=== PATIENT | male | born 1960 | race Caucasian/White ===

== ENCOUNTER 2020-08-05 11:53 | Outpatient (REF) | payer OTHER, SELFPAY ==
--- NOTE | 2020-08-05 11:58 | XR_ITS ---
EXAMINATION: XR CERVICAL SPINE CLINICAL INFORMATION: Cervical radiculopathy COMPARISON: None TECHNIQUE: 3 views of the cervical spine were obtained. FINDINGS: Straightening of the normal cervical lordosis. Slight anterolisthesis of C3 on C4, appearing degenerative. The atlantoaxial joint is well contained. The dens is intact. Disc space narrowing of C4-C5 and C5-C6 with prominent endplate osteophytes. Prominent endplate osteophytes also noted at C6-C7. The lung apices are clear. The prevertebral soft tissues are unremarkable. Vertebral body height and alignment is otherwise maintained. XR/XR cervical spine 3V IMPRESSION: Moderate degenerative changes throughout the cervical spine.
== END 2020-08-05 11:54 | disposition home or self-care (01) ==
LOC: HO.HMGCX 11:53
PROVIDERS: PCP Nurse Practitioner Family; Visit Provider Internal Medicine
DX: M54.12 Radiculopathy, cervical region (principal)
CPT/HCPCS: 72040

== ENCOUNTER 2020-09-15 15:47 | Outpatient (REF) | payer OTHER, SELFPAY ==
--- NOTE | 2020-09-15 15:50 | MR_ITS ---
MR CERVICAL SPINE WITHOUT CONTRAST CLINICAL INFORMATION: Cervical region radiculopathy. COMPARISON: Cervical spine radiographs 08/05/2020. TECHNIQUE: MRI of the cervical spine was obtained using routine sequences without contrast. FINDINGS: There is reversal of the cervical lordosis. The vertebral body heights are maintained. There are multilevel endplate osteophytes. The disc volumes are preserved. There is bone marrow edema within the right C4 and C5 facets that is most likely degenerative or inflammatory. There is no additional bone marrow edema. There are no acute fractures. Cervical arterial flow voids are maintained. There are no significant soft tissue findings. The partially imaged intracranial compartment is unremarkable. C2-C3: Disc osteophyte and ligamentum flavum thickening mildly narrow the central canal. Uncovertebral joint hypertrophy and advanced facet arthropathy result in severe left-sided foraminal stenosis. C3-C4: Disc osteophyte and ligamentum flavum thickening mildly narrow the central canal. Uncovertebral joint hypertrophy and hypertrophic facet arthropathy result in severe left and moderate to severe right foraminal stenosis. C4-C5: Disc osteophyte and ligamentum flavum thickening result in moderate to severe central canal stenosis and flattening of the cervical cord. Uncovertebral joint hypertrophy and hypertrophic facet arthropathy result in severe right and moderate to severe left foraminal stenosis. C5-C6: Central disc protrusion results in severe central canal stenosis and mass effect on the cord. Uncovertebral joint hypertrophy and hypertrophic facet arthropathy result in severe bilateral foraminal stenosis. No cord signal changes. C6-C7: Annular disc bulge and ligamentum flavum thickening result in moderate central canal stenosis. There is a soft right foraminal disc protrusion that results in severe right-sided foraminal stenosis and compression of the exiting right C7 nerve root. Uncovertebral joint spurring and facet arthropathy result in mild to moderate left foraminal stenosis. C7-T1: Disc contour is normal. No central canal stenosis and no foraminal stenosis. MR/MR cervical spine wo con IMPRESSION: - Advanced cervical spondylosis. Multifactorial degenerative changes result in severe central canal stenosis at C5-C6, moderate to severe central canal stenosis at C4-C5, and moderate central canal stenosis at C6-C7 with mass effect on the cervical spinal cord at all these levels, greatest at C5-C6. No definite cord signal changes accounting for artifact. - At C6-C7, there is a soft right foraminal disc protrusion that results in severe right-sided foraminal stenosis and compression of the exiting right C7 nerve root. - Advanced spondylitic changes result in additional varying degrees of moderate to severe foraminal stenosis bilaterally throughout the cervical spine as discussed in detail above.
== END 2020-09-15 15:48 | disposition home or self-care (01) ==
LOC: HO.MRI 15:47
PROVIDERS: Visit Provider Nurse Practitioner Family
DX: M54.12 Radiculopathy, cervical region (principal)
CPT/HCPCS: 72141

== ENCOUNTER 2020-10-22 08:54 | Outpatient (REF) | payer OTHER, SELFPAY ==
[2020-10-22 10:46] LABS: MANUAL DIFF FLAG NO
[2020-10-22 10:57] LABS: Basophils Percent Auto 0.8 % (0-2); Eosinophils Absolute Auto 0.3 X10*3/uL (0.0-0.4); Eosinophils Percent Auto 7.6 % (0-4); Hematocrit 45.4 % (42-52); Hemoglobin 14.2 g/dl (14.0-18.0); Lymphocytes Absolute Auto 1.1 X10*3/uL (1.2-4.9); Lymphocytes Percent Auto 30.8 % (20-40); Mean Corpuscular HGB Conc 31.3 g/dl (31.0-36.0); Mean Corpuscular Hemoglobin 27.6 pg (27.0-33.0); Mean Corpuscular Volume 88.3 fL (80-98); Mean Platelet Volume 9.4 fL (9.4-12.4); Monocytes Absolute Auto 0.6 X10*3/uL (0.1-1.2); Monocytes Percent Auto 17.5 % (2-11); Neutrophils Absolute Auto 1.5 X10*3/uL (2.0-8.3); Neutrophils Percent Auto 43.3 % (45-73); Platelet Count 282 X10*3/uL (160-400); Red Blood Count 5.14 X10*6/uL (4.60-5.80); Red Cell Distribution Width 12.5 % (11.0-16.0); White Blood Count 3.5 X10*3/uL (4.8-10.8)
[2020-10-22 11:16] LABS: Alanine Aminotransferase 16 U/L (0-40); Albumin Level 4.3 g/dL (3.5-5.0); Alkaline Phosphatase 60 U/L (39-117); Anion Gap 11 (12-20); Aspartate Amino Transferase 20 U/L (5-37); Bilirubin Total 0.9 mg/dL (0.0-1.0); Blood Urea Nitrogen 11 mg/dL (9-16); Calcium 8.8 mg/dL (8.4-10.2); Carbon Dioxide 31 mmol/L (22-29); Chloride 103 mmol/L (96-108); Estimated Glomerular Filt Rate > 60; Glucose Random 88 mg/dL (60-115); Potassium 4.7 mmol/L (3.3-5.1); Sodium 140 mmol/L (135-145); Total Protein 6.7 g/dL (6.5-8.0)
[2020-10-22 11:52] LABS: Prothrombin Time 12.1 SEC (10.8-13.0)
[2020-10-22 11:58] LABS: Partial Thromboplastin Time 70.2 SEC (24.1-38.0)
== END 2020-10-22 08:55 | disposition home or self-care (01) ==
LOC: HO.WFDLDS 08:54
PROVIDERS: Visit Provider Nurse Practitioner Family
DX: Z01.818 Encounter for other preprocedural examination (principal)
CPT/HCPCS: 36415; 80053; 85025; 85610; 85730

== ENCOUNTER 2020-10-23 09:26 | Outpatient (REF) | payer OTHER, SELFPAY ==
[2020-10-23 11:51] LABS: Partial Thromboplastin Time 67.1 SEC (24.1-38.0)
[2020-10-23 12:04] LABS: Alanine Aminotransferase 14 U/L (0-40); Alkaline Phosphatase 62 U/L (39-117); Aspartate Amino Transferase 15 U/L (5-37); Bilirubin Direct 0.2 mg/dL (0.0-0.5); Bilirubin Total 0.3 mg/dL (0.0-1.0); Total Protein 6.4 g/dL (6.5-8.0)
== END 2020-10-23 09:27 | disposition home or self-care (01) ==
LOC: HO.WFDLDS 09:26
PROVIDERS: Visit Provider Nurse Practitioner Family
DX: Z01.818 Encounter for other preprocedural examination (principal)
CPT/HCPCS: 36415; 80076; 85730

== ENCOUNTER 2020-12-04 07:37 | Outpatient (REF) | payer OTHER, SELFPAY ==
[2020-12-04 11:40] LABS: Glucose Urine UA NEG (NEG); Leukocyte Esterase Urine NEG (NEG); Nitrite Urine NEG (NEG); PH 6.5 (5.0-8.0); Specific Gravity - Urine 1.025 (1.005-1.025); Urine Blood NEG (NEG); Urine Ketones NEG (NEG); Urine Protein NEG (NEG-TRACE)
[2020-12-04 11:41] LABS: Appearance Urine HAZY; Color Urine YELLOW
[2020-12-04 11:54] LABS: Alanine Aminotransferase 10 U/L (0-40); Albumin Level 4.1 g/dL (3.5-5.0); Alkaline Phosphatase 68 U/L (39-117); Anion Gap 9 (12-20); Aspartate Amino Transferase 14 U/L (5-37); Bilirubin Total 0.6 mg/dL (0.0-1.0); Blood Urea Nitrogen 18 mg/dL (9-16); Calcium 8.9 mg/dL (8.4-10.2); Carbon Dioxide 33 mmol/L (22-29); Chloride 104 mmol/L (96-108); Cholesterol 145 mg/dL; Estimated Glomerular Filt Rate > 60; Glucose Fasting 87 mg/dL (60-99); HDL Cholesterol 45 mg/dL; LDL Cholesterol Calculated 85 mg/dl; Potassium 4.4 mmol/L (3.3-5.1); Sodium 142 mmol/L (135-145); Total Protein 6.5 g/dL (6.5-8.0); Triglycerides 77 mg/dL
[2020-12-04 11:59] LABS: Prostate Specific Antigen Scr 0.82 ng/mL (<0.05-4.0); TSH reflex Free T4 0.46 uIU/mL (0.32-4.0)
== END 2020-12-04 07:38 | disposition home or self-care (01) ==
LOC: HO.HMGCLDS 07:37
PROVIDERS: PCP Nurse Practitioner Family; Visit Provider Nurse Practitioner Family
DX: Z00.00 Encounter for general adult medical examination without abnormal findings (principal)
CPT/HCPCS: 36415; 80053; 80061; 81003; 84153; 84443

== ENCOUNTER 2021-08-25 14:35 | Outpatient (REF) | payer OTHER, SELFPAY | END 2021-08-25 14:36 | disposition home or self-care (01) | LOC: HO.HMGCLDS 14:35 | PROVIDERS: Visit Provider Internal Medicine | DX: Z20.822 Contact with and (suspected) exposure to COVID-19 (principal) | CPT/HCPCS: C9803; U0003; U0005 ==

== ENCOUNTER 2022-10-07 06:02 | Outpatient (REF) | payer OTHER, SELFPAY ==
[2022-10-07 11:17] LABS: MANUAL DIFF FLAG NO
[2022-10-07 11:26] LABS: Basophils Percent Auto 0.6 % (0-2); Eosinophils Absolute Auto 0.3 X10*3/uL (0.0-0.4); Eosinophils Percent Auto 6.6 % (0-4); Hematocrit 45.4 % (42.0-52.0); Hemoglobin 14.1 g/dl (14.0-18.0); Imm Gran Abs Auto 0.02 X10*3/uL (0.00-0.03); Imm Gran Pct Auto 0.4 % (0.0-0.4); Lymphocytes Absolute Auto 1.3 X10*3/uL (1.2-4.9); Lymphocytes Percent Auto 25.4 % (20-40); Mean Corpuscular HGB Conc 31.1 g/dl (31.0-36.0); Mean Corpuscular Volume 90.1 fL (80.0-98.0); Mean Platelet Volume 9.5 fL (9.4-12.4); Monocytes Absolute Auto 0.5 X10*3/uL (0.1-1.2); Monocytes Percent Auto 9.7 % (2-11); Neutrophils Absolute Auto 2.9 x10*3/uL (2.0-8.3); Neutrophils Percent Auto 57.3 % (45-73); Platelet Count 255 X10*3/uL (160-400); Red Blood Count 5.04 X10*6/uL (4.60-5.80); Red Cell Distribution Width 12.9 % (11.0-16.0)
[2022-10-07 11:50] LABS: Alanine Aminotransferase 14 U/L (0-40); Albumin Level 4.2 g/dL (3.5-5.0); Alkaline Phosphatase 64 U/L (39-117); Anion Gap 10 (12-20); Aspartate Amino Transferase 19 U/L (5-37); Bilirubin Total 0.9 mg/dL (0.0-1.0); Blood Urea Nitrogen 16 mg/dL (9-16); Calcium 9.4 mg/dL (8.4-10.2); Carbon Dioxide 32 mmol/L (22-29); Chloride 103 mmol/L (96-108); Cholesterol 161 mg/dL; Estimated Glomerular Filt Rate > 60; Glucose Fasting 102 mg/dL (60-99); HDL Cholesterol 47 mg/dL; LDL Cholesterol Calculated 89 mg/dl; Potassium 4.5 mmol/L (3.3-5.1); Sodium 140 mmol/L (135-145); Total Protein 6.7 g/dL (6.5-8.0); Triglycerides 125 mg/dL
[2022-10-07 12:07] LABS: TSH reflex Free T4 1.19 uIU/mL (0.32-4.0)
[2022-10-08 07:49] LABS: Follicle Stimulating Hormone 12.2 mIU/mL (1.6-8.0); Lutenizing Hormone 1.6 mIU/mL (1.6-15.2); Sex Hormone Binding Globulin 49 nmol/L (22-77)
[2022-10-14 13:34] LABS: Testosterone, Free 23.6 pg/mL (35.0-155.0); Testosterone, Total 243 ng/dL (250-1100)
== END 2022-10-07 06:03 | disposition home or self-care (01) ==
LOC: HO.HMGCLDS 06:02
PROVIDERS: PCP Nurse Practitioner Family; Visit Provider Nurse Practitioner Family
DX: F41.9 Anxiety disorder, unspecified (principal); N52.9 Male erectile dysfunction, unspecified; Z12.5 Encounter for screening for malignant neoplasm of prostate
CPT/HCPCS: 36415; 80053; 80061; 83001; 83002; 84153; 84270; 84402; 84403; 84443; 85025

== ENCOUNTER 2022-12-23 06:14 | Outpatient (REF) | payer OTHER, SELFPAY ==
[2022-12-30 13:54] LABS: Testosterone, Total 432 ng/dL (250-1100)
== END 2022-12-23 06:15 | disposition home or self-care (01) ==
LOC: HO.HMGCLDS 06:14
PROVIDERS: PCP Nurse Practitioner Family; Visit Provider Physician Assistant Surgical
DX: E29.1 Testicular hypofunction (principal)
CPT/HCPCS: 36415; 84402; 84403

== ENCOUNTER 2023-11-23 10:04 | Outpatient (AMB) | payer OTHER, SELFPAY ==
--- NOTE | 2023-11-23 10:12 | A.OFFPC_ITS ---
Vital Signs 11/23/23 10:16 Height 5 ft 11 in Weight 205 lb BMI 28.6 BP 126/78 Blood Pressure Location Lt brachial Position Sitting Pulse 81 Pulse Source Pulse Oximeter Pulse Oximetry (%) 97 Oxygen Delivery Method Room Air Intake Visit Reasons: Lump on neck Intake Note: pt is here for concern of lump on neck Bumper Straightener Required: No Allergies prednisone Allergy (Mild, Verified 11/23/23 10:51) tachycardia Penicillins Allergy (Unknown, Verified 11/23/23 10:51) vomiting penicillin V Adverse Reaction (Unknown, Verified 11/23/23 10:51) Vomiting Medication List - Last Reconciled 11/23/23 by SANJIV Pollock losartan 75 mg (3 x 25 mg) PO DAILY 90 days tamsulosin 0.4 mg PO DAILY Tobacco use date assessed: 11/23/23 Fall risk assessment: No Falls in past year Last assessed Fall Risk: 11/23/23 Dental Screening Dental Screen Date: 11/23/23 Did you have a dental visit in the last 12 months?: Yes Did you have a dental problem in the last 6 months where you did not have access to dental care?: No Was dental information given to patient?: Patient has dentist HPI Lump on neck HPI Details pt reports approx 3 months ago he noticed a lump to the right aspect of his anterior neck. He reports some tenderness with palpation. Denies any ear pains, dsyphagia, CP, SOB, fevers, chills, though does report a sore throat (intermittent). #2 pt reports the he was diagnosed with MG approx 40 years ago. He reports his first symptoms was weakness of BLE. He reports recently developing increase in BLE weakness. He reports his eyes become fatigued , i have to pry my eyelid open sometimes . He further reports his eyes cross when very tired. He does report working up to 50+ hrs a week. [facility] Medical History Adrenal adenoma HTN (hypertension) Anemia ETOH abuse Fatty liver Myasthenia gravis Romero's palsy Radiculitis of right cervical region Surgical History Status post cervical discectomy History of microdiscectomy History of thymectomy Family History Father Myocardial infarction Substance use disorder Mother Arthritis Social History Housing: House Alcohol intake: never Patient Tobacco Use Status: Never used Tobacco e-Cigarette/Vaping Use: Never Used service: No Current occupational status: employed Current occupation: [employer] Current occupational exposures/hazards: No Cognitive needs: No Hearing needs: No Vision needs: No Questionnaire PHQ-9 Over the last 2 weeks, how often have you been bothered by any of the following problems? 30169 - PHQ-9 Billing: Patient declined-do not bill Source: Developed by Drs. Kiet Sanchez, Mitzy Soliz, Mickey Jauregui and colleagues, with an educational jojo from [employer]. Thrive Questionnaire Date Thrive assessed: 11/23/23 I am a: Patient What is your living situation today?: I have a steady place to live Within the past 12 months, did the food you bought not last and you didn't have the money to get more?: Never true Within the past 12 months, did you worry whether your food would run out before you got money to buy more?: Never true Do you have trouble paying for medicines?: No Do you have trouble getting transportation to medical appointments?: No Do you have trouble paying your heating and electricity bill?: No Do you have trouble taking care of your child, family member or friend?: No Do you have trouble with day-to-day activities such as bathing, preparing meals, shopping, managing finances, etc.?: No Are you currently unemployed and looking for a job?: No Are you interested in more education?: No Please select the resources that you would like help with: None Currently or been in a relationship where the following occur: no concerns reported THRIVE Score: 0 AUDIT C Alcohol Use Questionnaire (AUDIT-C) 1. How often do you have a drink containing alcohol?: Never Total Score: 0 Score Reviewed/Action Taken: Yes MELBA-7 AMB Questionnaire MELBA-7 Date MELBA - 7 assessed: 11/23/23 Source: Developed by Mitzy Aguiar, Mickey Jauregui and colleagues, with an educational jojo from [employer]. MELBA-7 Assessment Billing MELBA-7 Assessment Tool: pt declined-do not bill Physical exam (Primary Care) Vital Signs: Last Vital Signs Pulse 81 11/23/23 10:16 BP 126/78 11/23/23 10:16 Pulse Ox 97 11/23/23 10:16 Oxygen Delivery Method Room Air 11/23/23 10:16 BMI result Body Mass Index 28.6 Tobacco/Smoking Status: Tobacco use Status Tobacco use date assessed 11/23/23 11/23/23 10:18 Patient Tobacco Use Status Never used Tobacco 11/23/23 10:12 e-Cigarette/Vaping Use Never Used 11/23/23 10:12 Thrive Assessment: Date of Thrive Assessment Date Thrive assessed 11/23/23 11/23/23 10:31 Currently or been in a relationship where the following occur: no concerns reported Const General: cooperative and no acute distress Orientation/consciousness: patient oriented x3 HENMT Head: Yes normal to inspection Ears: TM normal on the right and TM normal on the left Mouth: Normal oral and palatal mucosa present Throat: Yes posterior oropharynx normal Neck Other: ? right cervical node enlargement. semi-tender movable Lump, not indurated and difficult to palpate, soft Neck: Yes normal visual inspection Resp Effort & Inspection: normal respiratory effort Auscultation: clear to auscultation bilaterally Cardio Rate: regular rate Rhythm: regular rhythm Heart sounds: S1 normal heart sound present and S2 normal heart sound present Neuro Other: left eyelid droop (baseline). fingers to thumb intact, arm pull test neg, no nystagmus noted with cardinal gazes, neg rhomberg. General: patient oriented x3 Cranial nerves: Yes CN's II-XII intact bilaterally Psych Appearance: grossly normal Mental Status: mental status grossly normal Speech and movement: Normal speech and movement present Thought process: Normal thought process present Assessment and Plan Assessment & Plan (1) Lump in neck: Code(s): R22.1 - Localized swelling, mass and lump, neck Plan: US (2) Myasthenia gravis: Code(s): G70.00 - Myasthenia gravis without (acute) exacerbation Plan: referring to neuro Orders: Orders US soft tiss head and/or neck Today R22.1 - Localized swelling, mass and lump, neck Referrals Neurology Referral G70.00 - Myasthenia gravis without (acute) exacerbation Coding Level of Care Code Est Pt Level 3 (33200) Diagnoses Lump in neck R22.1 Myasthenia gravis G70.00
[2023-11-23 10:16] VITALS: BP 126/78; PULSE 81; O2SAT 97; BMI 28.6
== END 2023-11-23 14:48 | disposition home or self-care (01) ==
PROVIDERS: PCP Nurse Practitioner Family; Visit Provider Nurse Practitioner Family
DX: R22.1 Localized swelling, mass and lump, neck (principal); G70.00 Myasthenia gravis without (acute) exacerbation
CPT/HCPCS: 99213

== ENCOUNTER 2024-01-12 06:16 | Outpatient (REF) | payer OTHER, SELFPAY ==
[2024-01-12 10:23] LABS: MANUAL DIFF FLAG NO
[2024-01-12 10:51] LABS: Basophils Percent Auto 0.7 % (0-2); Eosinophils Absolute Auto 0.4 X10*3/uL (0.0-0.4); Eosinophils Percent Auto 7.5 % (0-4); Hematocrit 42.6 % (42.0-52.0); Hemoglobin 13.9 g/dl (14.0-18.0); Imm Gran Abs Auto 0.01 X10*3/uL (0.00-0.03); Imm Gran Pct Auto 0.2 % (0.0-0.4); Lymphocytes Absolute Auto 1.2 X10*3/uL (1.2-4.9); Lymphocytes Percent Auto 21.5 % (20-40); Mean Corpuscular HGB Conc 32.6 g/dl (31.0-36.0); Mean Corpuscular Hemoglobin 29.3 pg (27.0-33.0); Mean Corpuscular Volume 89.9 fL (80.0-98.0); Mean Platelet Volume 9.7 fL (9.4-12.4); Monocytes Absolute Auto 0.4 X10*3/uL (0.1-1.2); Monocytes Percent Auto 7.8 % (2-11); Neutrophils Absolute Auto 3.3 x10*3/uL (2.0-8.3); Neutrophils Percent Auto 62.3 % (45-73); Platelet Count 229 X10*3/uL (160-400); Red Blood Count 4.74 X10*6/uL (4.60-5.80); White Blood Count 5.4 X10*3/uL (4.8-10.8)
[2024-01-12 11:02] LABS: Alanine Aminotransferase 17 U/L (0-40); Alkaline Phosphatase 69 U/L (39-117); Anion Gap 9 (12-20); Aspartate Amino Transferase 35 U/L (5-37); Bilirubin Total 0.4 mg/dL (0.0-1.0); Blood Urea Nitrogen 18 mg/dL (9-16); Calcium 9.5 mg/dL (8.4-10.2); Carbon Dioxide 30 mmol/L (22-29); Chloride 104 mmol/L (96-108); Cholesterol 145 mg/dL (<200); Estimated Glomerular Filt Rate > 60; Glucose Fasting 88 mg/dL (60-99); HDL Cholesterol 49 mg/dL (>40); LDL Cholesterol Calculated 61 mg/dL (<100); Potassium 4.3 mmol/L (3.3-5.1); Sodium 139 mmol/L (135-145); Total Protein 6.8 g/dL (6.5-8.0); Triglycerides 175 mg/dL (<150)
[2024-01-12 11:08] LABS: TSH reflex Free T4 1.01 uIU/mL (0.32-4.0)
== END 2024-01-12 06:17 | disposition home or self-care (01) ==
LOC: HO.HMGCLDS 06:16
PROVIDERS: PCP Nurse Practitioner Family; Visit Provider Nurse Practitioner Family
DX: Z00.00 Encounter for general adult medical examination without abnormal findings (principal); Z13.6 Encounter for screening for cardiovascular disorders
CPT/HCPCS: 36415; 80053; 80061; 84443; 85025

== ENCOUNTER 2024-01-20 10:23 | Outpatient (REF) | payer OTHER, SELFPAY ==
[2024-01-20 14:12] LABS: Appearance Urine Clear; Color Urine Yellow; Glucose Urine UA Negative (Negative); Leukocyte Esterase Urine Negative (Negative); Nitrite Urine Negative (Negative); PH 7.5 (5.0-9.0); Specific Gravity - Urine 1.015 (1.005-1.025); Urine Blood Negative (Negative); Urine Ketones Negative (Negative); Urine Protein Negative (Neg-Trace)
== END 2024-01-20 10:24 | disposition home or self-care (01) ==
LOC: HO.HMGCLDS 10:23
PROVIDERS: PCP Nurse Practitioner Family; Visit Provider Nurse Practitioner Family
DX: R30.0 Dysuria (principal)
CPT/HCPCS: 81003; 87086

== ENCOUNTER 2024-02-14 11:29 | Outpatient (AMB) | payer OTHER, SELFPAY ==
[2024-02-14 11:48] VITALS: BP 130/76; PULSE 80; O2SAT 97; BMI 28.2
--- NOTE | 2024-02-14 11:48 | A.OFFPC_ITS ---
Vital Signs 02/14/24 11:48 Height 5 ft 11 in Weight 202 lb BMI 28.2 BP 130/76 Blood Pressure Location Rt brachial Position Sitting Pulse 80 Pulse Source Pulse Oximeter Pulse Oximetry (%) 97 Intake Visit Reasons: PE Intake Note: pt is here for physical exam Progressive Die Maker Required: No Allergies prednisone Allergy (Mild, Verified 02/14/24 12:15) tachycardia Penicillins Allergy (Unknown, Verified 02/14/24 12:15) vomiting penicillin V Adverse Reaction (Unknown, Verified 02/14/24 12:15) Vomiting Medication List - Last Reconciled 02/14/24 by SANJIV Pollock losartan 75 mg (3 x 25 mg) PO DAILY 90 days tamsulosin 0.4 mg PO DAILY Tobacco use date assessed: 11/23/23 Fall risk assessment: No Falls in past year Last assessed Fall Risk: 02/14/24 Dental Screening Dental Screen Date: 11/23/23 HPI PE HPI Details Pt is here for a PE. Will order labs. Colon screen is up to date. Due for PSA, will order. Pt reports weak stream. Pt is seeing urology. He has an upcoming cystoscopy. Pt has a hx of myasthenia gravis. He does not currently see a neurologist, will refer. [facility] Medical History Adrenal adenoma HTN (hypertension) Anemia ETOH abuse Fatty liver Myasthenia gravis Romero's palsy Radiculitis of right cervical region Surgical History Status post cervical discectomy History of microdiscectomy History of thymectomy Family History Father Myocardial infarction Substance use disorder Mother Arthritis Social History Housing: House Alcohol intake: never Patient Tobacco Use Status: Never used Tobacco e-Cigarette/Vaping Use: Never Used service: No Current occupational status: employed Current occupation: [employer] Current occupational exposures/hazards: No Cognitive needs: No Hearing needs: No Vision needs: No Questionnaire Thrive Questionnaire Date Thrive assessed: 11/23/23 MELBA-7 AMB Questionnaire MELBA-7 Date MELBA - 7 assessed: 11/23/23 Source: Developed by Drs. Kiet Sanchez, Mitzy Soliz, Mickey Jauregui and colleagues, with an educational jojo from [employer]. Review of Systems Const Denies chills and Denies fever(s) Eyes Denies blurry vision ENT Denies vertigo, Denies dizziness and Denies sore throat Card Denies chest pain at rest, Denies chest pain with activity, Denies diaphoresis, Denies dyspnea and Denies dyspnea on exertion Resp Denies cough, Denies dyspnea, Denies dyspnea on exertion and Denies wheezing GI Denies abdominal pain, Denies melena, Denies hematochezia, Denies constipation, Denies diarrhea and Denies loose stools Denies hematuria Musc Denies numbness and Denies tingling Skin/Breast Denies lesions Neuro Denies vertigo, Denies dizziness, Denies numbness and Denies tingling Psych Denies anxiety, Denies depression, Denies homicidal ideation, Denies suicidal ideation and Denies other (substance abuse) Aller/Immun Denies wheezing Physical exam (Primary Care) Vital Signs: Last Vital Signs Pulse 80 02/14/24 11:48 BP 130/76 02/14/24 11:48 Pulse Ox 97 02/14/24 11:48 BMI result Body Mass Index 28.2 Tobacco/Smoking Status: Tobacco use Status Tobacco use date assessed 11/23/23 02/14/24 11:50 Patient Tobacco Use Status Never used Tobacco 02/14/24 11:50 e-Cigarette/Vaping Use Never Used 02/14/24 11:50 Thrive Assessment: Date of Thrive Assessment Date Thrive assessed 11/23/23 02/14/24 11:50 Const General: cooperative Nutritional Appearance: well nourished Orientation/consciousness: patient oriented x3 HENMT Head: Yes normal to inspection, Yes normocephalic and Yes atraumatic Ears: TM's normal bilaterally Eyes Other: left eyelid slow to react, slight droop of left mouth General: appearance normal, both eyes and all related structures Alignment and Position: alignment normal and position normal Neck Neck: Yes normal visual inspection and Yes no lymphadenopathy Thyroid: Thyroid normal Resp Effort & Inspection: normal respiratory effort Auscultation: clear to auscultation bilaterally Cardio Rate: regular rate Rhythm: regular rhythm Heart sounds: S1 normal heart sound present, S2 normal heart sound present and no murmurs GI Palpation (GI): Soft to palpation and nontender Auscultation: normal bowel sounds Other: AMPARO: prostate enlarged Male General Exam: Yes normal external exam Penis: normal penis Scrotum: scrotum normal, testes descended bilaterally and no inguinal hernias Testes: no testicular mass Skin Rashes: no rashes Neuro General: patient oriented x3, moves all extremities, no focal motor deficits and deep tendon reflexes 2+ bilaterally Romberg Test: Negative Psych Appearance: grossly normal Mental Status: mental status grossly normal Speech and movement: Normal speech and movement present Affect: normal affect Attitude: cooperative Thought process: Normal thought process present Thought content: Normal thought content present Insight: Good insight present (Psych) Judgement: Good judgement present (Psych) Assessment and Plan Assessment & Plan (1) Physical exam: Code(s): Z. - Encounter for general adult medical examination without abnormal findings Plan: Labs ordered (2) Myasthenia gravis: Code(s): G70.00 - Myasthenia gravis without (acute) exacerbation Plan: Referred to neurology (3) Screening PSA (prostate specific antigen): Code(s): Z12.5 - Encounter for screening for malignant neoplasm of prostate Plan The patient agreed to the use of a director of graduate medical education for this encounter. Scribed for SANJIV Cadena by Negar Velez director of graduate medical education, on 02/14/2024 at 12:05 EST. Orders: Orders Complete Blood Count Auto Diff Today Z00.00 - Encounter for general adult medi mert examination without abnormal findings TSH reflex Free T4 Today Z00.00 - Encounter for general adult medical examination without abnormal findings Lipid Panel Today Z00.00 - Encounter for general adult medical examination without abnormal findings Comprehensive Radcliffe. Panel Fast Today Z00.00 - Encounter for general adult medical examination without abnormal findings UA CC w/rflx Micro + Cult Today Z00.00 - Encounter for general adult medical examination without abnormal findings Prostate Specific Antigen Scr Today Z12.5 - Encounter for screening for malignant neoplasm of prostate Referrals Neurology Referral G70.00 - Myasthenia gravis without (acute) exacerbation Coding Level of Care Code Est Pt Prev Care >65y(50992) Diagnoses Physical exam Z00.00 Myasthenia gravis G70.00 Screening PSA (prostate specific antigen) Z12.5
== END 2024-02-14 12:28 | disposition home or self-care (01) ==
PROVIDERS: Visit Provider Nurse Practitioner Family
DX: Z00.00 Encounter for general adult medical examination without abnormal findings (principal); G70.00 Myasthenia gravis without (acute) exacerbation; Z12.5 Encounter for screening for malignant neoplasm of prostate
CPT/HCPCS: 99397

== ENCOUNTER 2024-08-07 06:07 | Outpatient (REF) | payer OTHER, SELFPAY ==
[2024-08-07 10:07] LABS: MANUAL DIFF FLAG NO
[2024-08-07 10:18] LABS: Basophils Percent Auto 0.4 % (0-2); Eosinophils Absolute Auto 0.3 X10*3/uL (0.0-0.4); Eosinophils Percent Auto 5.2 % (0-4); Hemoglobin 14.6 g/dl (14.0-18.0); Imm Gran Abs Auto 0.01 X10*3/uL (0.00-0.03); Imm Gran Pct Auto 0.2 % (0.0-0.4); Lymphocytes Absolute Auto 1.2 X10*3/uL (1.2-4.9); Lymphocytes Percent Auto 21.9 % (20-40); Mean Corpuscular HGB Conc 32.4 g/dl (31.0-36.0); Mean Corpuscular Volume 89.5 fL (80.0-98.0); Mean Platelet Volume 9.4 fL (9.4-12.4); Monocytes Absolute Auto 0.5 X10*3/uL (0.1-1.2); Monocytes Percent Auto 9.4 % (2-11); Neutrophils Absolute Auto 3.4 x10*3/uL (2.0-8.3); Neutrophils Percent Auto 62.9 % (45-73); Platelet Count 209 X10*3/uL (160-400); Red Blood Count 5.03 X10*6/uL (4.60-5.80); Red Cell Distribution Width 12.8 % (11.0-16.0); White Blood Count 5.3 X10*3/uL (4.8-10.8)
[2024-08-07 10:52] LABS: Alanine Aminotransferase 17 U/L (0-40); Albumin Level 4.3 g/dL (3.5-5.0); Alkaline Phosphatase 58 U/L (39-117); Anion Gap 8 (12-20); Aspartate Amino Transferase 24 U/L (5-37); Blood Urea Nitrogen 15 mg/dL (9-16); Calcium 9.6 mg/dL (8.4-10.2); Carbon Dioxide 32 mmol/L (22-29); Chloride 105 mmol/L (96-108); Cholesterol 144 mg/dL (<200); Estimated Glomerular Filt Rate > 60; Glucose Fasting 81 mg/dL (60-99); HDL Cholesterol 50 mg/dL (>40); LDL Cholesterol Calculated 75 mg/dL (<100); Potassium 4.7 mmol/L (3.3-5.1); Sodium 140 mmol/L (135-145); TSH reflex Free T4 1.46 uIU/mL (0.32-4.0); Triglycerides 98 mg/dL (<150)
[2024-08-07 11:05] LABS: Prostate Specific Antigen Scr 0.92 ng/mL (<0.05-4.0)
== END 2024-08-07 06:08 | disposition home or self-care (01) ==
LOC: HO.HMGCLDS 06:07
PROVIDERS: PCP Nurse Practitioner Family; Visit Provider Nurse Practitioner Family
DX: Z00.00 Encounter for general adult medical examination without abnormal findings (principal); Z12.5 Encounter for screening for malignant neoplasm of prostate
CPT/HCPCS: 36415; 80053; 80061; 84153; 84443; 85025

== ENCOUNTER 2024-08-15 08:02 | Outpatient (AMB) | payer OTHER, SELFPAY ==
--- NOTE | 2024-08-15 08:06 | MHC.PC.OV ---
Vital Signs 08/15/24 08:07 Height 5 ft 11 in Weight 206 lb 8 oz BMI 28.8 BP 128/84 Blood Pressure Location Rt brachial Position Sitting Pulse 83 Pulse Source Pulse Oximeter Pulse Oximetry (%) 98 Oxygen Delivery Method Room Air Intake Visit Reasons: 6 month follow up Allergies prednisone Allergy (Mild, Verified 08/15/24 08:09) tachycardia Penicillins Allergy (Unknown, Verified 08/15/24 08:09) vomiting penicillin V Adverse Reaction (Unknown, Verified 08/15/24 08:09) Vomiting Tobacco use date assessed: 08/15/24 Fall risk assessment: No Falls in past year Dental Screening Dental Screen Date: 08/15/24 Did you have a dental visit in the last 12 months?: Yes Did you have a dental problem in the last 6 months where you did not have access to dental care?: No Was dental information given to patient?: Patient has dentist HPI 6 month follow up HPI Details HTN: stable. denies any CP, SOB, dizziness, N/V. He does report intermittent edema to his BLE, describing more sock/trace edema. Choles/trigs/LDL looking fairly impressive. [facility] Medical History HTN (hypertension) Microscopic hematuria Peyronie disease Adrenal adenoma Anemia ETOH abuse Fatty liver Myasthenia gravis Romero's palsy Radiculitis of right cervical region Surgical History Status post cervical discectomy History of microdiscectomy History of thymectomy Family History Father Myocardial infarction Substance use disorder Mother Arthritis Social History Housing: House Alcohol intake: never Patient Tobacco Use Status: Never used Tobacco e-Cigarette/Vaping Use: Never Used service: No Current occupational status: employed Current occupation: [employer] Current occupational exposures/hazards: No Cognitive needs: No Hearing needs: No Vision needs: No Questionnaire PHQ-9 Over the last 2 weeks, how often have you been bothered by any of the following problems? 1. Little interest or pleasure in doing things: not at all 2. Feeling down, depressed, or hopeless: not at all 3. Trouble falling or staying asleep, or sleeping too much: not at all 4. Feeling tired or having little energy: not at all 5. Poor appetite or overeating: not at all 6. Feeling bad about yourself - or that you are a failure or have let yourself or your family down: not at all 7. Trouble concentrating on things, such as reading the newspaper or watching television: not at all 8. Moving or speaking so slowly that other people could have noticed. Or the opposite - being so fidgety or restless that you have been moving around a lot more than usual: not at all 9. Thoughts that you would be better off or of hurting yourself in some way: not at all Total score: 0 Depression Screening Interpretation: Negative Depression Screening Done: Yes 17260 - PHQ-9 Billing: Yes Source: Developed by Drs. Kiet Sanchez, Mitzy Soliz, Mickey Jauregui and colleagues, with an educational jojo from [employer]. Thrive Questionnaire Date Thrive assessed: 08/15/24 I am a: Patient What is your living situation today?: I have a steady place to live Within the past 12 months, did the food you bought not last and you didn't have the money to get more?: Never true Within the past 12 months, did you worry whether your food would run out before you got money to buy more?: Never true Do you have trouble paying for medicines?: No Do you have trouble getting transportation to medical appointments?: No Do you have trouble paying your heating and electricity bill?: No Do you have trouble taking care of your child, family member or friend?: No Do you have trouble with day-to-day activities such as bathing, preparing meals, shopping, managing finances, etc.?: No Are you currently unemployed and looking for a job?: No Are you interested in more education?: No Please select the resources that you would like help with: None THRIVE Score: 0 AUDIT C Alcohol Use Questionnaire (AUDIT-C) 1. How often do you have a drink containing alcohol?: Never 3. How often do you have six or more drinks on one occasion?: Never Total Score: 0 Score Reviewed/Action Taken: Yes MELBA-7 AMB Questionnaire MELBA-7 Date MELBA - 7 assessed: 08/15/24 Feeling nervous, anxious, or on edge: 0 = Not at all Not being able to stop or control worryin = Not at all Worrying too much about different things: 0 = Not at all Trouble relaxin = Not at all Being so restless that it is hard to sit still: 0 = Not at all Becoming easily annoyed or irritable: 0 = Not at all Feeling afraid as if something awful might happen: 0 = Not at all Total MELBA-7 score (0-4 normal; 5-9 mild; 10-14 moderate; 15-21 severe): 0 Source: Developed by Drs. Kiet Sanchez, Mitzy Soliz, Mickey Jauregui and colleagues, with an educational jojo from [employer]. MELBA-7 Assessment Billing MELBA-7 Assessment Tool: MELBA-7 Assessment 79704 Physical exam (Primary Care) Vital Signs: Last Vital Signs Pulse 83 08/15/24 08:07 BP 128/84 08/15/24 08:07 Pulse Ox 98 08/15/24 08:07 Oxygen Delivery Method Room Air 08/15/24 08:07 BMI result Body Mass Index 28.8 Tobacco/Smoking Status: Tobacco use Status Tobacco use date assessed 08/15/24 08/15/24 08:11 Patient Tobacco Use Status Never used Tobacco 08/15/24 08:11 e-Cigarette/Vaping Use Never Used 08/15/24 08:11 PHQ-9: PHQ-9 Score PHQ-9: Total score 0 08/15/24 08:11 Depression Screening Interpretation: Negative Thrive Assessment: Date of Thrive Assessment Date Thrive assessed 08/15/24 08/15/24 08:11 Resp Effort & Inspection: normal respiratory effort Auscultation: clear to auscultation bilaterally Cardio Rate: regular rate Rhythm: regular rhythm Heart sounds: S1 normal heart sound present, S2 normal heart sound present and no murmurs Extrem Right lower extremity: no edema Left lower extremity: no edema Psych Appearance: grossly normal Mental Status: mental status grossly normal Speech and movement: Normal speech and movement present Affect: normal affect Attitude: cooperative Thought process: Normal thought process present Thought content: Normal thought content present Insight: Good insight present (Psych) Judgement: Good judgement present (Psych) Coding Level of Care Code Est Pt Level 3 (33837) Diagnoses HTN (hypertension) I10 Additional Codes MELBA-7 Assessment Billing - MELBA-7 Assessment Tool: MELBA-7 Assessment 14145 ([id number]) PHQ-9 - 75686 - PHQ-9 Billing: Yes ([id number]) Assessment & Plan Assessment & Plan (1) HTN (hypertension): Code(s): I10 - Essential (primary) hypertension Category: Medical Plan cont same regime
[2024-08-15 08:07] VITALS: BP 128/84; PULSE 83; O2SAT 98; BMI 28.8
== END 2024-08-15 08:34 | disposition home or self-care (01) ==
PROVIDERS: PCP Nurse Practitioner Family; Visit Provider Nurse Practitioner Family
DX: I10 Essential (primary) hypertension (principal)

== ENCOUNTER → 2024-08-15 08:02 | Outpatient (BNVA) | payer OTHER, SELFPAY | PROVIDERS: PCP Nurse Practitioner Family; Visit Provider Nurse Practitioner Family | DX: I10 Essential (primary) hypertension (principal) | CPT/HCPCS: 96127 ==

== ENCOUNTER 2024-08-28 07:26 | Outpatient (AMB) | payer OTHER, SELFPAY ==
--- NOTE | 2024-08-28 07:31 | A.OFFVIS_ITS ---
Vital Signs 08/28/24 07:32 Height 5 ft 11 in Weight 5 lb 11 oz BMI 0.8 Intake Visit Reasons: Myasthenia Intake Note: Patient presents for myasthenia gravis. Allergies prednisone Allergy (Mild, Verified 08/15/24 08:09) tachycardia Penicillins Allergy (Unknown, Verified 08/15/24 08:09) vomiting penicillin V Adverse Reaction (Unknown, Verified 08/15/24 08:09) Vomiting Medication List - Last Reconciled 08/28/24 by Carole Ramos MD losartan 75 mg (3 x 25 mg) PO DAILY 90 days tadalafil 5 mg PO DAILY tamsulosin 0.4 mg PO DAILY HPI Comments Details: 64y/o male diagnosed with myasthenia 45 years ago at [facility] by DR. Helio lucio for further management. He had thymectomy at that time and was on mestinon. He did well after thymectomy and was maintained on mestinon and about 20-25 years he weaned off mestinon and stopped following with neurology. his main symptoms during diagnosis was droopy eyelids and generalized weakness, double vision etc. He had cervical fusion surgery in [id number] and since then he right hand weakness worsened. The follow up CT - spinal cord looked ok as per patient but but his he never regained strength in his right UE and is wondering if it is myasthenia. He also has Orlinda palsy on his left 10 years ago with residual spasm . He denies ptosis, diplopia, dysarthria, dysphagia . He has generalized weakness.No Gi symptoms .He has enlarge dprostarte and has frequency. he has occasional numbness in his right fingers. No tingling , radicular pain. He also has poor sleep, loud snoring, witnessed apneas, gasping arousals and excessive daytime sleepiness. He was a heavy alcohol user - sober for 7 years . he also has chronic back issues and had surgery 10 years ago. [facility] Medical History (Updated 08/28/24 @ 08:33 by Carole Ramos MD) Numbness and tingling in right hand Hypersomnia Snoring Weakness HTN (hypertension) Microscopic hematuria Peyronie disease Adrenal adenoma Anemia ETOH abuse Fatty liver Myasthenia gravis Romero's palsy Radiculitis of right cervical region Surgical History Status post cervical discectomy History of microdiscectomy History of thymectomy Family History Father Myocardial infarction Substance use disorder Mother Arthritis Social History Housing: House Alcohol intake: never Patient Tobacco Use Status: Never used Tobacco e-Cigarette/Vaping Use: Never Used service: No Current occupational status: employed Current occupation: [employer] Current occupational exposures/hazards: No Cognitive needs: No Hearing needs: No Vision needs: No Physical Exam Vital Signs: BMI result Body Mass Index 0.8 Const Orientation/consciousness: patient oriented x3 Eyes Pupils: Equal, round and reactive pupils present Neuro Other: Left LOMN facial paresis with spasm Mallampatti grade 4 Restricted range of motion of neck . speech - normal General: patient oriented x3, gait normal, tone normal, moves all extremities and no focal motor deficits Cranial nerves: Yes Facial sensation intact/muscles of mastication intact, Yes Equal, round and reactive pupils present, Yes Bilaterally intact EOM present, Yes Nystagmus not present, Yes Midline tongue present, Yes Symmetric palate elevation present and Yes Ability to bilaterally elevate shoulders present Cognition (Neuro): normal cognition Motor exam (neuro): 5/5 motor strength present throughout and Normal motor muscle tone present throughout Deep tendon reflexes (DTR's): Right triceps reflex intensity grade: 1+, Left triceps reflex intensity grade: 2+, Rt Biceps (C5, C6): 1+, Left biceps reflex intensity grade: 2+, Right brachioradialis reflex intensity grade: 1+, Left brachioradialis reflex intensity grade: 1+, Right patellar reflex intensity grade: 1+ and Left patellar reflex intensity grade: 1+ Coordination: [id number] test normal Assessment & Plan Assessment & Plan (1) Myasthenia gravis: Comment: stable Code(s): G70.00 - Myasthenia gravis without (acute) exacerbation Category: Medical (2) Weakness: Comment: residual Right hand weakness and numbness - s/p cervical spine surgery in 2020 Code(s): R53.1 - Weakness Category: Medical (3) Snoring: Code(s): R06.83 - Snoring Category: Medical (4) Hypersomnia: Code(s): G47.10 - Hypersomnia, unspecified Category: Medical Plan I will evaluate him with EMG NCS Right UE Anti AChR antibody levels - Myasthenia has resolved and been stable for over 20 years now.The right UE weakness is likey a residual from cervical spondylosis stenosis . Home sleep study to r/o sleep apnea. Orders: Orders NE electromyogram (EMG) Today R20.0 - Anesthesia of skin, R20.2 - Paresthesia of skin, R53.1 - Weakness RT home sleep study Today G47.10 - Hypersomnia, unspecified, R06.83 - Snoring NE nerve conduction velocity Today R20.0 - Anesthesia of skin, R20.2 - Paresthesia of skin, R53.1 - Weakness Coding Level of Care Code New Pt Level 4 (61968) Complex EM visit Add On G2211 Diagnoses Myasthenia gravis G70.00 Weakness R53.1 Snoring R06.83 Hypersomnia G47.10
== END 2024-08-28 08:11 | disposition home or self-care (01) ==
PROVIDERS: PCP Nurse Practitioner Family; Visit Provider Psychiatry & Neurology Neurology
DX: G70.00 Myasthenia gravis without (acute) exacerbation (principal); R53.1 Weakness; R06.83 Snoring; G47.10 Hypersomnia, unspecified
CPT/HCPCS: 99204

== ENCOUNTER 2025-03-13 08:09 | Outpatient (AMB) | payer OTHER, SELFPAY ==
[2025-03-13 08:23] VITALS: BP 130/72; PULSE 76; O2SAT 98; BMI 28.3
--- NOTE | 2025-03-13 08:23 | MHC.PC.OV ---
Vital Signs 03/13/25 08:23 Height 5 ft 11 in Weight 203 lb BMI 28.3 BP 130/72 Blood Pressure Location Lt brachial Position Sitting Pulse 76 Pulse Source Pulse Oximeter Pulse Oximetry (%) 98 Oxygen Delivery Method Room Air Intake Visit Reasons: PE Hemmer Automatic Required: No Accompanied by: Self / Same As Patient Allergies prednisone Allergy (Mild, Verified 03/13/25 08:51) tachycardia Penicillins Allergy (Unknown, Verified 03/13/25 08:51) vomiting penicillin V Adverse Reaction (Unknown, Verified 03/13/25 08:51) Vomiting Medication List - Last Reconciled 03/13/25 by KIMBERLY PollockP- losartan 75 mg (3 x 25 mg) PO DAILY 90 days tadalafil 5 mg PO DAILY Tobacco use date assessed: 03/13/25 Fall risk assessment: No Falls in past year Last assessed Fall Risk: 03/13/25 Dental Screening Dental Screen Date: 03/13/25 Did you have a dental visit in the last 12 months?: Yes Did you have a dental problem in the last 6 months where you did not have access to dental care?: No Was dental information given to patient?: Patient has dentist HPI PE HPI Details History of Present Illness The patient is a 64-year-old male presenting for a physical examination. He denies experiencing chest pain, dyspnea, abdominal pain, or changes in bowel habits such as constipation or diarrhea. Additionally, he denies any suicidal or homicidal ideation. The patient has a history of Romero's palsy, which affects his ability to make a complete smile on the left side of his mouth. He also presents with left-sided ptosis, which is a drooping of the upper eyelid. The patient has been diagnosed with myasthenia gravis, a chronic autoimmune neuromuscular disorder. He reports feeling fine and does not wish to see a specialist for this condition at present. For preventative care, the patient was previously referred to [facility] for colon cancer screening. He does not recall when his next screening is due, and regular PSA tests are conducted as part of his urological care. Health Maintenance - Colon cancer screening: Referred to [facility] - Prostate-specific antigen (PSA) tests: Conducted regularly Social History Review of Systems - General: Denies fever or chills - Cardiovascular: Denies chest pain - Respiratory: Denies dyspnea - Gastrointestinal: Denies abdominal pain, blood in stool, constipation, or diarrhea - Neurological: Denies suicidal or homicidal ideation Physical Exam General: Cooperative, healthy appearing, comfortable, no acute distress and well developed Orientation: Patient oriented x3 Limitations: No limitations Head: Normal to inspection Ears: Hearing grossly normal bilaterally Nose: Normal external nose present Face and sinus: Left-sided ptosis and left mouth unable to make a complete smile due to previous history of Romero's palsy Eyes: Appearance normal, both eyes and all related structures Neck: Normal visual inspection and Yes full ROM Respiratory: Normal respiratory effort and able to speak in complete sentences. Clear to auscultation bilaterally Cardiovascular: Regular rate and rhythm. Normal S1 and S2 GI: Normal to inspection. Soft to palpation and nontender : Testicles without masses/lesions and no hernias appreciated Skin: No rashes or lesions noted Neuro: Patient oriented x3 Extremities: Normal to inspection Results Plan The patient will continue with regular PSA testing as part of his urological care. A follow-up with [facility] will be arranged to determine the schedule for his next colon cancer screening. The patient has been informed about the importance of monitoring his myasthenia gravis, although he currently feels well and does not wish to see a specialist. Discussion Notes I discussed with the patient the importance of continuing regular PSA testing and the need to follow up with [facility] for his colon cancer screening schedule. We also talked about his myasthenia gravis, emphasizing the importance of monitoring the condition, even though he currently feels fine and does not wish to see a specialist. Patient Instructions - Continue regular PSA testing as advised by your urologist. - Follow up with [facility] to schedule your next colon cancer screening. - Monitor your symptoms related to myasthenia gravis and report any changes. [facility] Medical History Numbness and tingling in right hand Hypersomnia Snoring Weakness HTN (hypertension) Microscopic hematuria Peyronie disease Adrenal adenoma Anemia ETOH abuse Fatty liver Myasthenia gravis Romero's palsy Radiculitis of right cervical region Surgical History Status post cervical discectomy History of microdiscectomy History of thymectomy Family History Father Myocardial infarction Substance use disorder Mother Arthritis Social History Housing: House Alcohol intake: never Patient Tobacco Use Status: Never used Tobacco e-Cigarette/Vaping Use: Never Used service: No Current occupational status: employed Current occupation: [employer] Current occupational exposures/hazards: No Cognitive needs: No Hearing needs: No Vision needs: No Questionnaire PHQ-9 Over the last 2 weeks, how often have you been bothered by any of the following problems? 1. Little interest or pleasure in doing things: not at all 2. Feeling down, depressed, or hopeless: not at all 3. Trouble falling or staying asleep, or sleeping too much: not at all 4. Feeling tired or having little energy: not at all 5. Poor appetite or overeating: not at all 6. Feeling bad about yourself - or that you are a failure or have let yourself or your family down: not at all 7. Trouble concentrating on things, such as reading the newspaper or watching television: not at all 8. Moving or speaking so slowly that other people could have noticed. Or the opposite - being so fidgety or restless that you have been moving around a lot more than usual: not at all 9. Thoughts that you would be better off or of hurting yourself in some way: not at all Total score: 0 Depression Screening Interpretation: Negative Depression Screening Done: Yes 97121 - PHQ-9 Billing: Yes Source: Developed by Drs. Kiet Sanchez, Mitzy Soliz, Mickey Jauregui and colleagues, with an educational jojo from [employer]. Thrive Questionnaire Date Thrive assessed: 03/13/25 I am a: Patient What is your living situation today?: I have a steady place to live Within the past 12 months, did the food you bought not last and you didn't have the money to get more?: Never true Within the past 12 months, did you worry whether your food would run out before you got money to buy more?: Never true Do you have trouble paying for medicines?: No Do you have trouble getting transportation to medical appointments?: No Do you have trouble paying your heating and electricity bill?: No Do you have trouble taking care of your child, family member or friend?: No Do you have trouble with day-to-day activities such as bathing, preparing meals, shopping, managing finances, etc.?: No Are you currently unemployed and looking for a job?: No Are you interested in more education?: No Please select the resources that you would like help with: None THRIVE Score: 0 AUDIT C Alcohol Use Questionnaire (AUDIT-C) 1. How often do you have a drink containing alcohol?: Never 3. How often do you have six or more drinks on one occasion?: Never Total Score: 0 Score Reviewed/Action Taken: Yes MELBA-7 AMB Questionnaire MELBA-7 Date MELBA - 7 assessed: 03/13/25 Feeling nervous, anxious, or on edge: 0 = Not at all Not being able to stop or control worryin = Not at all Worrying too much about different things: 0 = Not at all Trouble relaxin = Not at all Being so restless that it is hard to sit still: 0 = Not at all Becoming easily annoyed or irritable: 0 = Not at all Feeling afraid as if something awful might happen: 0 = Not at all Total MELBA-7 score (0-4 normal; 5-9 mild; 10-14 moderate; 15-21 severe): 0 Source: Developed by Drs. Kiet Sanchez, Mitzy Soliz, Mickey Jauregui and colleagues, with an educational jojo from [employer]. MELBA-7 Assessment Billing MELBA-7 Assessment Tool: MELBA-7 Assessment 53245 Physical exam (Primary Care) Vital Signs: Last Vital Signs Pulse 76 03/13/25 08:23 BP 130/72 03/13/25 08:23 Pulse Ox 98 03/13/25 08:23 Oxygen Delivery Method Room Air 03/13/25 08:23 BMI result Body Mass Index 28.3 Tobacco/Smoking Status: Tobacco use Status Tobacco use date assessed 03/13/25 03/13/25 08:26 Patient Tobacco Use Status Never used Tobacco 03/13/25 08:26 e-Cigarette/Vaping Use Never Used 03/13/25 08:26 PHQ-9: PHQ-9 Score PHQ-9: Total score 0 06/25/25 08:26 Depression Screening Interpretation: Negative Thrive Assessment: Date of Thrive Assessment Date Thrive assessed 03/13/25 03/13/25 08:26 Coding Level of Care Code Est Pt Prev Care >65y(70244) Diagnoses Physical exam Z00. Vitamin D deficiency E55.9 Additional Codes MELBA-7 Assessment Billing - MELBA-7 Assessment Tool: MELBA-7 Assessment 12341 ([id number]) PHQ-9 - 72380 - PHQ-9 Billing: Yes ([id number]) Assessment & Plan Assessment & Plan (1) Physical exam: Code(s): Z00.00 - Encounter for general adult medical examination without abnormal findings Category: Medical (2) Vitamin D deficiency: Code(s): E55.9 - Vitamin D deficiency, unspecified Category: Medical Plan . Orders: Orders Comprehensive [place]. Panel Fast Today Z00.00 - Encounter for general adult medical examination without abnormal findings TSH reflex Free T4 Today Z00.00 - Encounter for general adult medical examination without abnormal findings UA CC w/rflx Micro + Cult Today Z00.00 - Encounter for general adult medical examination without abnormal findings AMB EKG-In Office Today Z00.00 - Encounter for general adult medical examination without abnormal findings Complete Blood Count Auto Diff Today Z00.00 - Encounter for general adult medical examination without abnormal findings Lipid Panel Today Z00.00 - Encounter for general adult medical examination without abnormal findings Vitamin D 25-OH Total Today E55.9 - Vitamin D deficiency, unspecified, Z00.00 - Encounter for general adult medical examination without abnormal findings
== END 2025-03-13 09:20 | disposition home or self-care (01) ==
LOC: HO.HMCC 08:10
PROVIDERS: PCP Nurse Practitioner Family; Visit Provider Nurse Practitioner Family
DX: Z00.00 Encounter for general adult medical examination without abnormal findings (principal); E55.9 Vitamin D deficiency, unspecified; Z23 Encounter for immunization

== ENCOUNTER → 2025-03-13 08:09 | Outpatient (BNVA) | payer OTHER, SELFPAY | PROVIDERS: PCP Nurse Practitioner Family; Visit Provider Nurse Practitioner Family | DX: Z00.00 Encounter for general adult medical examination without abnormal findings (principal); G51.0 Bell's palsy; G70.00 Myasthenia gravis without (acute) exacerbation; E55.9 Vitamin D deficiency, unspecified; Z23 Encounter for immunization | CPT/HCPCS: 90471; 90677; 96127 ==

== ENCOUNTER 2025-08-26 06:07 | Outpatient (REF) | payer OTHER, SELFPAY ==
--- OUTSIDE RECORDS SUMMARY | 2025-08-26 06:11 | XMS_ITS | Clinical Summary ---
Author Organization [facility] Address [facility] [place] [address] Care Team Providers Care Personal Service Representative Name Role Phone Unavailable Primary Care Provider Unavailabl e Social History Tobacco Use Types Packs/Day Years Used Date Smoking Tobacco: Never Assessed Sex and Gender Information Value Date Recorded Sex Assigned at Not on file Legal Sex Male 2:33 PM EDT Gender Identity Not on file Sexual Orientation Not on file Plan of Treatment Health Maintenance Due Date Last Done Comments CT Colonography 1958 Colonoscopy 1958 Colorectal Cancer Screening 1958 FIT DNA 1958 FIT 1958 Sigmoidoscopy (10 year) with FIT yearly 1958 Sigmoidoscopy 1958 Hepatitis C Screening 1976 Lipid Screening 1976 Tetanus/Diphtheria/Pertussis Vaccines (1 - Tdap) 06/30 Pneumoccocal Vaccine: 50+ (1 of 1 - PCV) 2008 Zoster vaccine (1 of 2) 2008 Advance Directive 2013 Covid-19 Vaccine (1 - season) 2025 Influenza (Flu) vaccine (1 o f 1 - Influenza standard series) 05/20/2025
[2025-08-26 10:01] LABS: MANUAL DIFF FLAG NO
[2025-08-26 10:26] LABS: Hematocrit 46.5 % (42.0-52.0); Hemoglobin 14.8 g/dl (14.0-18.0); Imm Gran Abs Auto 0.01 X10*3/uL (0.00-0.03); Imm Gran Pct Auto 0.2 % (0.0-0.4); Lymphocytes Absolute Auto 1.1 X10*3/uL (1.2-4.9); Mean Corpuscular HGB Conc 31.8 g/dl (31.0-36.0); Mean Corpuscular Hemoglobin 28.7 pg (27.0-33.0); Mean Corpuscular Volume 90.3 fL (80.0-98.0); NRBC Abs Auto 0.000 X10*3/uL (0.0-0.012); NRBC Pct Auto 0.0 /100WBC (0.0-0.2); Platelet Count 220 X10*3/uL (160-400); Red Blood Count 5.15 X10*6/uL (4.60-5.80); White Blood Count 5.2 X10*3/uL (4.8-10.8)
[2025-08-26 11:43] LABS: Alanine Aminotransferase 15 U/L (0-40); Albumin Level 4.6 g/dL (3.5-5.0); Alkaline Phosphatase 58 U/L (39-117); Anion Gap 10 (12-20); Aspartate Amino Transferase 25 U/L (5-37); Blood Urea Nitrogen 15 mg/dL (9-16); Calcium 9.7 mg/dL (8.4-10.2); Carbon Dioxide 30 mmol/L (22-29); Chloride 105 mmol/L (96-108); Cholesterol 159 mg/dL (<200); Estimated Glomerular Filt Rate > 60; HDL Cholesterol 53 mg/dL (>40); Potassium 4.6 mmol/L (3.3-5.1); Sodium 140 mmol/L (135-145); Total Protein 7.1 g/dL (6.5-8.0); Triglycerides 103 mg/dL (<150)
== END 2025-08-26 06:08 | disposition home or self-care (01) ==
LOC: HO.HMGCLDS 06:07
PROVIDERS: Absent Provider Urology; PCP Nurse Practitioner Family; Visit Provider Nurse Practitioner Family
DX: Z00.00 Encounter for general adult medical examination without abnormal findings (principal); Z13.6 Encounter for screening for cardiovascular disorders; Z13.29 Encounter for screening for other suspected endocrine disorder; E55.9 Vitamin D deficiency, unspecified; R35.1 Nocturia; R68.82 Decreased libido
CPT/HCPCS: 36415; 80053; 80061; 82306; 84403; 84443; 85025

== ENCOUNTER 2025-09-16 11:25 | Outpatient (AMB) | payer OTHER, SELFPAY ==
[2025-09-16 11:33] VITALS: BP 154/90; PULSE 80; O2SAT 100; BMI 27.9
--- NOTE | 2025-09-16 11:33 | MHC.PC.OV ---
Vital Signs 09/16/25 11:33 09/16/25 12:15 Height 5 ft 11 in Weight 200 lb BMI 27.9 BP 154/90 H 126/76 Blood Pressure Location Lt brachial Lt brachial Position Sitting Sitting Pulse 80 Pulse Source Pulse Oximeter Pulse Oximetry (%) 100 Oxygen Delivery Method Room Air Intake Visit Reasons: 6 month Follow up Knockdown Man Required: No Accompanied by: Self / Same As Patient Allergies prednisone Allergy (Mild, Verified 03/13/25 08:51) tachycardia Penicillins Allergy (Unknown, Verified 03/13/25 08:51) vomiting penicillin V Adverse Reaction (Unknown, Verified 03/13/25 08:51) Vomiting Medication List - Last Reconciled 09/16/25 by SANJIV Pollock losartan 75 mg (3 x 25 mg) PO DAILY 90 days tadalafil 5 mg PO DAILY Tobacco use date assessed: 09/16/25 Dental Screening Dental Screen Date: 03/13/25 HPI 6 month Follow up HPI Details Chief Complaint The patient presents for a follow-up visit for hypertension and evaluation of ongoing cervical neck pain. History of Present Illness The patient is a 65 year old male presenting for a follow-up on his hypertension. His blood pressure was elevated upon arrival but normalized after a few minutes of rest. The patient denies any associated chest pain, shortness of breath, headaches, or blurred vision. He also reports ongoing cervical neck pain with cracking, which is a chronic issue following an extensive anterior cervical discectomy and fusion (ACDF) surgery around 1475-1525. He describes the pain as local to the cervical neck region, particularly on the right side, and denies any radiculopathy into the extremities. Additionally, he has a wart-like growth on the distal interphalangeal (DIP) joint of his right index finger and papular lesions (skin colored). papular lesions of face (right cheek) For health maintenance, he sees a urologist, and a prostate-specific antigen (PSA) test is being ordered in preparation for his next visit with them. Social History Health Maintenance As the patient follows with a urologist, a PSA level will be obtained so the results are available for his upcoming appointment. Review of Systems - General: Patient denies headaches. - Cardiovascular: Patient denies chest pain. - Respiratory: Patient denies shortness of breath. - Eyes: Patient denies blurred vision. - Musculoskeletal: Patient reports ongoing cervical neck pain with cracking, localized to the cervical region and greater on the right side. - Neurologic: Patient denies radiculopathy into his extremities. Physical Exam General: Cooperative, healthy appearing, comfortable, no acute distress and well developed Orientation: Patient oriented x3 Limitations: No limitations Head: Normal to inspection Ears: Hearing grossly normal bilaterally Nose: Normal external nose present Face and sinus: Normal facial exam Eyes: Appearance normal, both eyes and all related structures Neck: Normal visual inspection, Yes full ROM, but reports ongoing cervical neck pain with cracking. neg spurlings, crepitus noted with neck flexion (with pain) Respiratory: Normal respiratory effort and able to speak in complete sentences. Clear to auscultation bilaterally Cardiovascular: Regular rate and rhythm. Normal S1 and S2 GI: Normal to inspection. Soft to palpation and nontender Skin: Right index finger DIP joint with wart-like tissue. Papular lesions on right cheek, mostly circular. Neuro: Patient oriented x3 Extremities: Normal to inspection, no radiculopathy or ridiculous symptoms in bilateral extremities. Negative Spurling's test. Results Plan 1. Hypertension The patient's blood pressure was elevated upon arrival but normalized with rest. He will continue to monitor his blood pressure at home intermittently and maintain a written log for review. 2. Cervicalgia The patient has ongoing cervical neck pain with cracking sensations, localized to the cervical region and more prominent on the right side, status post-ACDF in 2020. There are no radicular symptoms, and Spurling's test was negative. A cervical spine X-ray will be obtained to assess the integrity of the surgical hardware. 3. Cutaneous Lesions The patient has a wart-like tissue on his right index finger DIP joint and papular, circular lesions of varying color on his right cheek. A referral to dermatology will be placed for further evaluation and management. Discussion Notes I have discussed the plan with the patient, which includes continued home blood pressure monitoring. We will proceed with a cervical spine X-ray to ensure the hardware from his prior neck surgery is intact. I informed him that a referral will be made to dermatology for evaluation of the skin lesions on his finger and cheek. Additionally, I explained that we will order a PSA blood test in preparation for his upcoming urology appointment. Patient Instructions - Continue to check your blood pressure at home from time to time and write down the numbers for us to review. - We will get an X-ray of your neck to check on the hardware from your past surgery. - A referral will be made for you to see a information technology specialist (litigation counsel) for the spots on your finger and cheek. - We will order a PSA blood test for you so the results are ready for your upcoming appointment with your urologist. [facility] Medical History Numbness and tingling in right hand Hypersomnia Snoring Weakness HTN (hypertension) Microscopic hematuria Peyronie disease Adrenal adenoma Anemia ETOH abuse Fatty liver Myasthenia gravis Romero's palsy Radiculitis of right cervical region Surgical History Status post cervical discectomy History of microdiscectomy History of thymectomy Family History Father Myocardial infarction Substance use disorder Mother Arthritis Social History Housing: House Alcohol intake: never Patient Tobacco Use Status: Never used Tobacco e-Cigarette/Vaping Use: Never Used service: No Current occupational status: employed Current occupation: [employer] Current occupational exposures/hazards: No Cognitive needs: No Hearing needs: No Vision needs: No Questionnaire PHQ-9 Over the last 2 weeks, how often have you been bothered by any of the following problems? 1. Little interest or pleasure in doing things: not at all 2. Feeling down, depressed, or hopeless: not at all 3. Trouble falling or staying asleep, or sleeping too much: not at all 4. Feeling tired or having little energy: not at all 5. Poor appetite or overeating: not at all 6. Feeling bad about yourself - or that you are a failure or have let yourself or your family down: not at all 7. Trouble concentrating on things, such as reading the newspaper or watching television: not at all 8. Moving or speaking so slowly that other people could have noticed. Or the opposite - being so fidgety or restless that you have been moving around a lot more than usual: not at all 9. Thoughts that you would be better off or of hurting yourself in some way: not at all Total score: 0 Source: Developed by Drs. Kiet Sanchez, Mitzy Soliz, Mickey Jauregui and colleagues, with an educational jojo from [employer]. Thrive Questionnaire Date Thrive assessed: 03/13/25 MELBA-7 AMB Questionnaire MELBA-7 Date MELBA - 7 assessed: 03/13/25 Source: Developed by Drs. Kiet Sanchez, Mitzy Soliz, Mickey Jauregui and colleagues, with an educational jojo from [employer]. Physical exam (Primary Care) Vital Signs: Last Vital Signs Pulse 80 09/16/25 11:33 BP 154/90 H 09/16/25 11:33 Pulse Ox 100 09/16/25 11:33 Oxygen Delivery Method Room Air 09/16/25 11:33 BMI result Body Mass Index 27.9 Tobacco/Smoking Status: Tobacco use Status Tobacco use date assessed 09/16/25 09/16/25 11:38 Patient Tobacco Use Status Never used Tobacco 09/16/25 11:38 e-Cigarette/Vaping Use Never Used 09/16/25 11:38 PHQ-9: PHQ-9 Score PHQ-9: Total score 0 09/16/25 12:14 Thrive Assessment: Date of Thrive Assessment Date Thrive assessed 03/13/25 09/16/25 11:38 Coding Level of Care Code Est Pt Level 3 (10394) Diagnoses Screening PSA (prostate specific antigen) Z12.5 Cervical pain (neck) M54.2 HTN (hypertension) I10 Skin lesions L98.9 Assessment & Plan Assessment & Plan (1) Screening PSA (prostate specific antigen): Code(s): Z12.5 - Encounter for screening for malignant neoplasm of prostate Category: Medical (2) Cervical pain (neck): Code(s): M54.2 - Cervicalgia Category: Medical (3) HTN (hypertension): Code(s): I10 - Essential (primary) hypertension Category: Medical (4) Skin lesions: Code(s): L98.9 - Disorder of the skin and subcutaneous tissue, unspecified Category: Medical Plan . Orders: Orders Prostate Specific Antigen Scr Today Z12.5 - Encounter for screening for malignant neoplasm of prostate XR cervical spine 2V Today M54.2 - Cervicalgia Referrals Dermatology Referral L98.9 - Disorder of the skin and subcutaneous tissue, unspecified
[2025-09-16 12:15] VITALS: BP 126/76
--- OUTSIDE RECORDS SUMMARY | 2025-09-16 13:22 | XMS_ITS | Clinical Summary ---
Author Organization [facility] Address [facility] [place] [address] Care Team Providers Care Carpet Journeyman Name Role Phone Unavailable Primary Care Provider [...]
== END 2025-09-16 12:07 | disposition home or self-care (01) ==
LOC: HO.HMCC 11:26
PROVIDERS: PCP Nurse Practitioner Family; Visit Provider Nurse Practitioner Family
DX: Z12.5 Encounter for screening for malignant neoplasm of prostate (principal); M54.2 Cervicalgia; I10 Essential (primary) hypertension; L98.9 Disorder of the skin and subcutaneous tissue, unspecified

== ENCOUNTER 2025-09-16 11:25 | Outpatient (REF) | payer OTHER, SELFPAY | END 2025-09-16 11:26 | disposition home or self-care (01) | LOC: HO.HMGCLDS 11:25 | PROVIDERS: PCP Nurse Practitioner Family; Visit Provider Nurse Practitioner Family | DX: Z12.5 Encounter for screening for malignant neoplasm of prostate (principal); Z13.31 Encounter for screening for depression | CPT/HCPCS: 36415; 84153; 96127 ==